=== PATIENT | male | born 1945 | race Caucasian/White ===

== ENCOUNTER → 2019-07-25 | Outpatient (CLI) | payer OTHER ==
[~2019-07-25] MED LIST: ADULT LOW DOSE81 MG PO; ALTACE; ALTACE10 M1 PO; AUGMENTIN 875-1 EACH PO; BENICAR20 MG PO; CEFUROXIME500 MG PO; CITRACAL SOFT1 EACH PO; FLOMAX0.4 MG PO; GLUCOSAMINE &1 EACH PO; KEFLEX250 MG PO; MEDROLDOSEPACK PO; OMEGA-3 FISH O1 EAC3 PO; PRAVASTATIN SOD20 MG PO; RED WINE EXTRA PO; RED YEAST RICE600 MG PO; RESVERATROL50 MG PO; SAW PALMETTO500 MG PO; UNICOMPLEX M TA1 TA1 PO; VITAMIN D400 UNI1 PO; [UNRECOGNIZED DRUG - OTHER]
== END ==
LOC: SJCVC 11:08
DX: I25.10 Atherosclerotic heart disease of native coronary artery without angina pectoris (principal); R00.1 Bradycardia, unspecified; I10 Essential (primary) hypertension; E78.5 Hyperlipidemia, unspecified; Z87.891 Personal history of nicotine dependence; Z72.89 Other problems related to lifestyle; Z79.82 Long term (current) use of aspirin; Z79.899 Other long term (current) drug therapy

== ENCOUNTER 2019-08-18 23:26 | Inpatient (IN) | payer OTHER ==
[~2019-08-18] VITALS: Ht 177.8 cm; Wt 79.4 kg
[~2019-08-18 23:26] MED LIST changes: -AUGMENTIN 875-1 EACH PO; -BENICAR20 MG PO; -CEFUROXIME500 MG PO; -PRAVASTATIN SOD20 MG PO; -RESVERATROL50 MG PO; -UNICOMPLEX M TA1 TA1 PO
[2019-08-18 23:32] VITALS: BP 123/75
[2019-08-18] MEDS ORDERED: BENICAR20 MG PO (23:40)
[2019-08-18] MEDS ORDERED: PRAVASTATIN SOD20 MG PO (23:40)
--- NOTE | 2019-08-19 00:38 | NUR ---
LAB CONTACTED, BLOOD WAS RECEIVED
[2019-08-19 00:45] LABS: ABSOLUTE NEUTROPHILS 6.3 thou/uL (1.4-8.2); BASOPHILS 0.3 % (0.0-2.0); EOSINOPHILS 0.1 % (0.0-3.0); HEMATOCRIT 43.5 % (42.0-52.0); HEMOGLOBIN 14.4 gm/dL (14.0-18.0); LYMPHOCYTES 5.5 % (24.0-44.0); MCH 29.2 pg (26.0-34.0); MCHC 33.2 g/dL (28.0-37.0); MCV 88.1 fL (80.0-100.0); MONOCYTES 0.5 % (1.0-8.0); PLATELET COUNT 160 thou/uL (150-400); POLYS 93.6 % (36.0-66.0); RBC 4.94 mil/uL (4.50-6.00); RDW 13.1 % (10.5-14.5); WBC 6.8 thou/uL (4.0-11.0)
[2019-08-19 00:48] LABS: CALCIUM 9.2 mg/dL (8.5-10.1); POTASSIUM 3.8 mmol/L (3.5-5.1)
[2019-08-19 00:54] LABS: TOTAL BILIRUBIN 1.6 mg/dL (<0.1-1.0); TOTAL PROTEIN 7.4 g/dL (6.4-8.2)
[2019-08-19 01:04] LABS: URINE BILIRUBIN NEGATIVE (Negative); URINE BLOOD 2+ (Negative); URINE CLARITY CLOUDY; URINE COLOR YELLOW; URINE GLUCOSE-RANDOM* NEGATIVE (Negative); URINE KETONES 1+ (Negative); URINE PROTEIN (DIPSTICK) TRACE (Negative); URINE SPECIFIC GRAVITY >= 1.030 (1.005-1.035); URINE UROBILINOGEN 0.2 E.U./dl (0.2-1.0)
[2019-08-19 01:05] LABS: URINE LEUKOCYTES-REFLEX 1+ (Negative); URINE NITRITE-REFLEX POSITIVE (Negative)
[2019-08-19 01:21] LABS: BACTERIA-REFLEX >30 Many /HPF (None Seen); CASTS None Seen /LPF (None Seen); CRYSTALS None Seen /LPF (None Seen); MUCUS None Seen strn/LPF (None Seen); SQUAMOUS None Seen /LPF (0-3); URINE WBC-REFLEX >25 Many /HPF (0-5)
[2019-08-19] MEDS ORDERED: AUGMENTIN 875-1 EACH PO (01:47)
[2019-08-19 05:14] LABS: CALCIUM 8.2 mg/dL (8.5-10.1); CREATININE 0.9 mg/dL (0.7-1.3); POTASSIUM 3.4 mmol/L (3.5-5.1)
[2019-08-19 08:20] VITALS: BP 107/41
[2019-08-19 09:23] VITALS: BP 108/49
[2019-08-19 09:30] VITALS: BP 101/67
--- NOTE | 2019-08-19 13:42 | NUR ---
0930Pt admitted to 3, ROOM 359. pt oriemnted to room. Alert and oriented X4, up ad eboni. Fall consent signed. Assessment and admission completed. pt denies any pain, nausea, vomiting. Call light in reac. Bed alarm on with bed at lowest level. Pt denies any needs. Will continue to monitor.
[2019-08-19 15:32] VITALS: BP 97/54
[2019-08-19 19:37] VITALS: BP 98/54
[2019-08-19 23:55] VITALS: BP 103/52
--- NOTE | 2019-08-20 04:47 | NUR ---
ASSUMED PT CARE AT 1900. PT IS ALERT AND ORIENTED WITH NO SIGN OF DISTRESS NOTED IN PT. PT IS AMBULATORY. ASSESSMENT COMPLETED AND DOCUMENTED. CALL LIGHT WITHIN REACH. PT VERBALIZES HEADACHE. MED ADMINISTERED. CONITNUE TO MONITOR PT. DENIES ANY FURTHER NEEDS AT THIS TIME.
[2019-08-20 05:12] VITALS: BP 98/55
[2019-08-20 07:36] VITALS: BP 96/52
--- NOTE | 2019-08-20 08:36 | NUR ---
Pt alert and oriented X4. Pt awake, eating breakfast. Denies pain, nausea and vomiting. Assessment completed. Call light and table in reach. Bed alarm on. Denies any needs. Will continue to monitor.
[2019-08-20] MEDS ORDERED: UNICOMPLEX M TA1 TA1 PO (15:41)
[2019-08-20] MEDS ORDERED: RESVERATROL50 MG PO (15:42)
[2019-08-20 15:52] VITALS: BP 101/58
[2019-08-20 19:58] VITALS: BP 107/64
--- NOTE | 2019-08-21 03:58 | NUR ---
C/O headache at Hs stating it's probably because of no caffeine due to his diet restrictions. Tylenol given with good relief.He slept fair during the night. Voided per urinal in the bathroom. Afebrile. Making progress towards care plan goals.
[2019-08-21 04:05] VITALS: BP 117/69
[2019-08-21] MEDS ORDERED: CEFUROXIME500 MG PO (08:35)
[2019-08-21 08:56] VITALS: BP 118/69
--- NOTE | 2019-08-21 09:29 | NUR ---
ASSUMED CARE OF PT APPROX 0715, A&0X4, AMB STEADY, USES URINAL AND SAVES URINAL FOR KEEPING TRACK OF I/0S. HAD HEADACHE FROM NO COFFEE, PER HIS DX. GAVE HIM DECAF AND HE WAS DELIGHTED. IV ABX, SEE SEPARATE INTERVENTIONS FOR ASSESSMENTS. NAME ON BOARD WAS JUAN, HE GOES BY [employer]. D/C NOTED AWAITING D/C SUMMARY AND WILL WORK ON HIM FIRST. ENCOURAGED HIM TO USE CALL LIGHT FOR ANY NEEDS
[2019-08-21 10:43] VITALS: BP 118/69
[2019-08-21 11:56] VITALS: BP 118/69
== END 2019-08-21 12:44 | disposition home or self-care (01) | DRG 871 ==
LOC: ER 23:26 → 3W 08-19 03:05 → EROBS 08-19 03:05 → 3W 08-19 09:10
PROVIDERS: Emergency Medicine; Nurse Practitioner Family; ADMIT Internal Medicine
DX: A41.9 Sepsis, unspecified organism (principal); E43 Unspecified severe protein-calorie malnutrition; N12 Tubulo-interstitial nephritis, not specified as acute or chronic; N40.0 Benign prostatic hyperplasia without lower urinary tract symptoms; I10 Essential (primary) hypertension; K44.9 Diaphragmatic hernia without obstruction or gangrene; E78.5 Hyperlipidemia, unspecified; G47.00 Insomnia, unspecified; G31.84 Mild cognitive impairment of uncertain or unknown etiology; B96.20 Unspecified Escherichia coli [E. coli] as the cause of diseases classified elsewhere; Z79.2 Long term (current) use of antibiotics; Z79.899 Other long term (current) drug therapy; Z87.891 Personal history of nicotine dependence; Z90.49 Acquired absence of other specified parts of digestive tract; Z87.440 Personal history of urinary (tract) infections; Z88.1 Allergy status to other antibiotic agents
CPT/HCPCS: 10879

== ENCOUNTER → 2020-12-02 | Outpatient (CLI) | payer OTHER ==
[~2020-12-02] MED LIST changes: +AUGMENTIN 875-1 EACH PO; +BENICAR20 MG PO; +CEFUROXIME500 MG PO; +PRAVASTATIN SOD20 MG PO; +RESVERATROL50 MG PO; +UNICOMPLEX M TA1 TA1 PO
== END ==
LOC: SJCVC 10:37
PROVIDERS: ATTEND Internal Medicine Cardiovascular Disease
DX: I25.10 Atherosclerotic heart disease of native coronary artery without angina pectoris (principal); R00.1 Bradycardia, unspecified; R93.1 Abnormal findings on diagnostic imaging of heart and coronary circulation; I10 Essential (primary) hypertension; E78.5 Hyperlipidemia, unspecified; R06.02 Shortness of breath; R53.83 Other fatigue; E78.00 Pure hypercholesterolemia, unspecified; Z87.891 Personal history of nicotine dependence; Z79.82 Long term (current) use of aspirin; Z79.899 Other long term (current) drug therapy; Z88.1 Allergy status to other antibiotic agents